=== PATIENT | male | born 1950 | race Caucasian/White ===

== ENCOUNTER → 2019-05-26 | Outpatient (CLI) | payer BC, MEDICARE ==
--- NOTE | 2019-05-27 12:24 | SLEEP ---
DATE OF STUDY: 05/26/2019 SLEEP STUDY ATTENDING PHYSICIAN: Wero Rosales MD INDICATIONS: The patient is a 68-year-old, who weighs 234 pounds with a BMI of 33. The patient's Rebecca score was 5. The patient underwent split night study performed at [facility]. TECHNIQUE AND FINDINGS: During the night study, the patient spent 447 minutes in bed and slept for 252 minutes with a low sleep efficiency of 56%. Sleep latency was 37 minutes with a REM latency of 284 minutes. Sleep architecture showed normal stage 1 sleep, increased stage 2 sleep, normal slow wave, and reduced REM sleep. During the initial diagnostic portion of the study, the patient slept for 117 minutes. During that time, there were 2 obstructive apneas, 79 hypopneas, 2 mixed apneas, and no central apneas. The patient's apnea-hypopnea index was 43 per hour with a supine index of 31 per hour and the REM index was not available due to lack of REM sleep. EKG monitoring revealed normal sinus rhythm, average heart rate 82 beats per minute. No significant periodic limb movements seen. Nocturnal oximetry study revealed mean oxygen saturation of 91% with the lowest of 79%. For 44% of time, oxygen saturation remained between 80% and 89%. The patient met the criteria for CPAP initiation. It was started at 7 cm water and titrated up to 12 cm water. At the final pressure, the patient slept for 104 minutes. The patient had supine sleep but no REM sleep. The patient's apnea-hypopnea index reduced to 4 per hour and oxygen saturation remained above 88%. The patient used full face medium-sized mask. IMPRESSION: 1. Severe sleep apnea-hypopnea syndrome at an apnea-hypopnea index of 43 per hour. 2. Nocturnal hypoxia secondary to obstructive sleep apnea but resolved with CPAP. 3. No clinically significant periodic limb movements. RECOMMENDATIONS: 1. CPAP at 12 cm water completely eliminated the patient's sleep apnea and should be used on a nightly basis. 2. Follow up in 4-6 weeks to assess compliance with CPAP and to document clinical improvement. 3. Weight loss is strongly advised. 4. Avoid [employer] depressants. 5. Caution regarding driving until symptoms of sleep apnea have resolved with the use of CPAP. ILIANA U. MOSER, MD DR: WILMAR/castro JOB#: [id number] / [id number] WERO Fernandez MD
== END | disposition home or self-care (01) ==
LOC: RT 19:11
PROVIDERS: ATTEND Internal Medicine Critical Care Medicine
DX: G47.33 Obstructive sleep apnea (adult) (pediatric) (principal); G47.34 Idiopathic sleep related nonobstructive alveolar hypoventilation
CPT/HCPCS: 95810

== ENCOUNTER → 2019-09-12 | Day surgery (SDC) | payer BC ==
[~2019-09-12] MED LIST: IBUP-1027 PO; IV RINGERS,LACTATED 1000ML 1,000 ML IV SCH
[2019-09-12 07:33] VITALS: BP 141/75
== END ==
LOC: ENDOS 05:54
PROVIDERS: ATTEND Internal Medicine Gastroenterology
DX: Z12.11 Encounter for screening for malignant neoplasm of colon (principal); K64.0 First degree hemorrhoids; K21.9 Gastro-esophageal reflux disease without esophagitis; K63.89 Other specified diseases of intestine; Z88.8 Allergy status to other drugs, medicaments and biological substances; Z91.040 Latex allergy status; Z98.890 Other specified postprocedural states; Z86.010 Personal history of colon polyps
CPT/HCPCS: 45378; G0105